=== PATIENT | female | born 1985 | race Caucasian/White ===

== ENCOUNTER 2024-09-25 18:12 | Emergency (ER) | payer BC, SELFPAY ==
[2024-09-25 18:53] LABS: D-Dimer 0.36 ug/mlFEU (0.00-0.50)
[2024-09-25 19:02] LABS: HCG, Serum Qualitative Screen Negative
[2024-09-25 19:07] LABS: ALT (SGPT) 20 U/L (0-35); AST (SGOT) 25 U/L (14-36); Albumin 4.9 g/dl (3.5-5.0); Alkaline Phosphatase 101 U/L (38-126); Blood Urea Nitrogen 9 mg/dl (7-17); Calcium 9.5 mg/dl (8.4-10.2); Carbon Dioxide 23 mmol/L (22-30); Chloride 101 mmol/L (98-107); Glucose 93 mg/dl (70-99); Potassium 4.2 mmol/L (3.5-5.1); Sodium 136 mmol/L (135-145); Total Bilirubin 0.6 mg/dl (0.2-1.3); Total Protein 7.9 g/dl (6.3-8.2); eGFR > 60.00
[2024-09-25 19:11] LABS: % Basophils 0.6 % (0-2); % Eosinophils 1.9 % (0-6); % Immature Granulocytes 0.4 % (0-0.5); % Lymphocytes 29.9 % (20.5-51.1); % Monocytes 6.2 % (1.7-9.3); Absolute Eosinophils 0.1 10^3/uL (0-0.7); Absolute Lymphocytes 2.1 10^3/uL (1.2-3.4); Absolute Monocytes 0.4 10^3/uL (0.1-0.6); Absolute Neutrophils 4.2 10^3/uL (1.4-6.5); Hematocrit 30.8 % (37.0-47.0); Hemoglobin 9.7 g/dL (12.0-16.0); Mean Corp Hgb Conc. 31.5 g/dL (33.0-37.0); Mean Corpuscular Hgb 21.8 pg (27.0-31.0); Mean Corpuscular Volume 69.2 fL (81.0-99.0); Nucleated Red Blood Cells % 0 %; Red Blood Cell Count 4.45 10^6/uL (4.20-5.40); Red Cell Dist. Width 16.7 % (11.5-14.5); White Blood Cell Count 6.9 10^3/uL (4.8-10.8)
[2024-09-25 20:13] VITALS: BP 139/86
[2024-09-25] MEDS: MORPHINE SULFATE 2 MG IV (20:15)
[2024-09-25] MEDS: NSS 500 IV (20:15)
[2024-09-25] MEDS: TORADOL 15 MG IV (20:15)
[2024-09-25] MEDS: ZOFRAN 4 MG IV (20:15)
--- NOTE | 2024-09-25 20:15 | ED.GENMED ---
History of Present Illness
General
Chief Complaint: Cough
Source: patient
Exam Limitations: none
Time Seen by Provider: 09/25/24 19:22
Nursing documentation reviewed up to this point in time: agreed with
History of Present Illness
History of Present Illness:
Patient presents to ED secondary to worsening right-sided rib pain, with cough and inspiration, over the past 1 week. Patient was admitted at different hospital 1 month ago, when she was treated for right-sided pneumonia. Since then, patient
states that fever has subsided and cough has improved, but is continuing. Denies nausea, vomiting, or diarrhea. Denies shortness of breath. Denies back pain. Denies leg pain or swelling.
Review of Systems
Review of Systems
Allergies reviewed?: Yes
All Other Systems: ROS reviewed and negative except as documented in HPI and ROS
Constitutional: Reports no symptoms; Denies fever or chills
EENT: Reports no symptoms
Respiratory: Reports cough and trouble breathing
Cardiac: Reports no symptoms
ABD/GI: Reports no symptoms; Denies vomiting or diarrhea
: Reports no symptoms
Musculoskeletal: Reports other (rib pain)
Skin: Reports no symptoms
Neurological: Reports no symptoms
Phy Exam
Physical Exam
Physical Exam:
Physical Exam
General: moderate painful distress, not acutely ill. afebrile
Head: nc/at. eomi
Neck: supple. no meningeal signs.
Heart: tachycardic, no murmur. equal radial pulses.
Lungs: mild respiratory distress. clear bilaterally. chest wall nontender to palpation
Abdomen: normal bowel sounds. not tender.
Neuro: alert and oriented. no focal neurological deficits
Skin: no rash
Psychiatric: well kept. interactive and cooperative
Extremities: no edema. no calf tenderness.
Course
Orders/Labs/Results
Orders:
Orders
09/25/24 18:21
Electrocardiogram (*1) Urgent
Reason for Study: Tachycardia
EKG- Treatment ONCE
09/25/24 18:28
Test Result ONCE
09/25/24 18:33
Complete Blood Count/With Diff Urgent
Comprehensive Metabolic Panel Urgent
D-Dimer Urgent
HCG, Serum Qualitative Screen Urgent
09/25/24 19:37
Ketorolac [Toradol] 15 mg IV NOW STA
Morphine Sulfate 2 mg IV NOW STA
Ondansetron Injectable [Zofran] 4 mg IV NOW STA
09/25/24 19:38
CT Chest Pe Study Urgent
Comment:
Reason For Exam: right sided CP w recent pneumonia
0.9% Sodium Chloride 500 ml [Nss] 500 ml IV BOLUS
09/25/24 21:52
Dexamethasone Pf [Decadron] 10 mg PO NOW STA
Oxycodone/Acetaminophen [Percocet 5/325] 1 tablet PO NOW STA
Abnormal Lab Results
09/25/24
18:33
Hgb 9.7 L g/dL
(12.0-16.0)
Hct 30.8 L %
(37.0-47.0)
MCV 69.2 L fL
(81.0-99.0)
MCH 21.8 L pg
(27.0-31.0)
MCHC 31.5 L g/dL
(33.0-37.0)
RDW 16.7 H %
(11.5-14.5)
09/25/24 18:33
09/25/24 18:33
Vital Signs
Initial and Last Documented VS:
Initial Vital Signs
Temp Pulse Resp Pulse Ox
99.5 F 137 22 100
09/25/24 18:16 09/25/24 18:16 09/25/24 18:16 09/25/24 18:16
Last Documented Vital Signs
Temp Pulse Resp BP Pulse Ox
99.5 F 99 28 142/105 100
09/25/24 18:16 09/25/24 22:00 09/25/24 22:00 09/25/24 21:38 09/25/24 22:00
MDM/Problems Addressed
MDM/Problems Addressed:
CTA chest ordered, with clinical concern for development of pulmonary embolism, with recent infection versus worsening pneumonia.
CTA chest report reviewed and discussed with patient. As patient is no longer febrile, with significant improving overall symptoms, patient will be treated symptomatically with course of steroids and pain medication. Patient has a follow-up
appointment with ID physician as well as primary care physician.
*EKG
Interpreted by ED Provider?: Yes
EKG Intrepretation Date: 09/25/24
Heart Rate: 112
Rate: tachycardiac
Rhythm: sinus
[place]: normal axis
Interval: normal interval
*Critical Care Note
Total Time (30-74mins, 75-104mins- exclusive of procedures): Not Applicable
ED Attending Note
-
Portions of this chart may have been created with voice recognition software.� Occasional wrong word or��sound alike� substitutions may have occurred due to the inherent limitations of voice recognition software.
Discharge Plan
Departure
Patient Disposition: Home (Routine Discharge)
Date of Disposition: 09/25/24
Time of Disposition: 21:52
Patient with high blood pressure during this ER visit?: Yes
Discharge Problem:
Pleurisy
Instructions: Pleuritic Chest Pain ED
Prescriptions:
New
methylprednisolone [Medrol (Luis Alfredo)] 4 mg tablets,dose pack
4 mg PO DAILY Qty: 21 0RF
oxycodone-acetaminophen [Percocet] 5-325 mg Tablet
1 tab PO Q6HPRN PRN (Reason: pain) Qty: 12 0RF
Referrals:
NONE,* [Family Provider] -
Activity Restrictions/Additional Instructions:
As discussed, please follow-up with your primary care physician and/or chrome tanner, upon returning home, for reevaluation. Your prescriptions have been sent electronically to [facility] pharmacy on [address] in [place].
Interventions
Interventions:
*Risk Screen - Suicide Last Done: 09/25/24 19:49
*General Assessment Last Done: 09/25/24 19:49
*Neglect/Abuse Screening Last Done: 09/25/24 18:16
ED- Fall Risk Assessment Last Done: 09/25/24 19:49
*ED COVID-19 Vaccine History Last Done: 09/25/24 19:49
*Nursing Disposition Last Done: 09/25/24 22:09
ED- Pulmonary Assessment Last Done: 09/25/24 19:49
Discharge Date and Time
Discharge Date/Time: 09/25/24 22:10
Print Language: KOREAN
[2024-09-25 21:38] VITALS: BP 142/105
[2024-09-25] MEDS: PERCOCET 5/325 1 TABLET PO (22:02)
[2024-09-25] MEDS: DECADRON 10 MG PO (22:02)
== END 2024-09-25 22:10 | disposition home or self-care (01) ==
LOC: EMR 18:12
PROVIDERS: Emergency Medicine; EMERGENCY PHYSICIAN Emergency Medicine
DX: R09.1 Pleurisy (principal)
CPT/HCPCS: 99284; 96374; 96375; 71275; 80053; 84703; 85025; 85379; 93005; Q9967